=== PATIENT | male | born 2000 | race Caucasian/White ===

== ENCOUNTER 2022-09-11 10:32 | Outpatient (CLI) | payer OTHER, SELFPAY ==
--- NOTE | 2022-09-18 16:46 | WPDHOLTEREM ---
Holter/Event Monitor Holter/Event Monitor Date of procedure: 09/11/22 Holter/Event Procedure: 24 Hr Holter Monitor Indications: Tachycardia Conclusion: 1. 24 hour holter monitor on 09/11/22. 2. Underlying rhythm is ectopic atrial rhythm. HR range 49-150 bpm; average 59 bpm. 3. There are 34 premature supraventricular complexes and 5 supraventricular couplets, and atrial tachycardia episodes. 4. No premature ventricular complexes. No ventricular tachycardia. 5. No sinoatrial or atrioventricular blocks. No significant pauses greater than 2 seconds. 6. Patient reports symptoms of flutter which demonstrate ectopic atrial rhythm, HR range 85-97 bpm.
== END 2022-09-11 10:33 | disposition home or self-care (01) ==
LOC: ANHCARD 10:33
PROVIDERS: PCP Family Medicine Adolescent Medicine; Visit Provider Nurse Practitioner Family
DX: R00.0 Tachycardia, unspecified (principal)
CPT/HCPCS: 93225; 93226